=== PATIENT | female | born 1980 | race American Indian/Alaskan Native ===

== ENCOUNTER 2017-05-30 13:08 | Emergency (ER) | payer OTHER ==
[2017-05-30 13:24] VITALS: BP 112/79
[2017-05-30] MEDS ORDERED: HYDROmorphone 0.5 MG/0.5 ML Syringe IVPUSH ONE ×2 (13:33→16:03)
[2017-05-30] MEDS ORDERED: Metoclopramide 10 MG/2 ML SDV IVPUSH ONE (13:33)
--- NOTE | 2017-05-30 13:38 | EDM.PDOC ---
ED HPI GENERAL MEDICAL PROBLEM - General Chief Complaint: Abdominal Pain Stated Complaint: SIDE PAIN Time Seen by Provider: 05/30/17 13:33 Source of Information: Reports: Patient History Limitations: Reports: No Limitations - History of Present Illness INITIAL COMMENTS - FREE TEXT/NARRATIVE: 36-year-old female presents to the ED with acute onset of nausea and vomiting initially and then development of right upper quadrant abdominal pain rating through to her back. This started about 0830 hrs. this morning while she was in the workplace. Has vomited 6 times. Now just dry heaves. No blood in the emesis. She had cereal for breakfast. She to use a small amount of chicken for dinner but threw this up as well. No fever no chills. No history of renal colic. No history of biliary colic. Pain came on abruptly. Is moving slowly down the right lower quadrant towards the groin. No genitourinary complaints. No previous abdominal surgery. Onset: Today Onset Date: 05/30/17 Onset Time: 08:00 Duration: Hour(s): Location: Reports: Abdomen (Right upper quadrant underneath her costal margin and into the right flank and side rating down the right hemiabdomen towards the groin.) Quality: Reports: Sharp, Stabbing, Other (Strong colicky component to the pain.) Improves with: Reports: None Context: Reports: Other (Spontaneous onset of nausea and vomiting followed by the pain.). Denies: Activity, Exercise, Lifting, Sick Contact, Trauma Associated Symptoms: Reports: Fever/Chills (Chills but no fever.), Malaise, Nausea/Vomiting (Intractable) Treatments COMMUNICATIONS WRITER: Reports: Other (see below) Other Treatments COMMUNICATIONS WRITER: alleve Right Lower Abdomen Pain Score (Numeric/FACES): 8 - Related Data Allergies Allergy/AdvReac Type Severity Reaction Status Date / Time No Known Allergies Allergy Verified 02/16/16 16:55 Home Meds: Home Meds Control 1 tab PO DAILY 05/30/17 [History] Past Medical History - Past Health History Medical/Surgical History: Denies Medical/Surgical History Other HEENT History: wears eyeglasses/contacts. 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 Hematologic History: Reports: Anemia, Blood Transfusion(s) Social & Family History - Tobacco Use Smoking Status *Q: Never Smoker Second Hand Smoke Exposure: No - Caffeine Use Caffeine Use: Reports: Coffee - Recreational Drug Use Recreational Drug Use: No - Living Situation & Occupation Living situation: Reports: Single Occupation: Employed ED ROS GENERAL - Review of Systems Review Of Systems: See Below Constitutional: Reports: Chills, Decreased Appetite HEENT: Reports: No Symptoms Respiratory: Reports: Shortness of Breath Cardiovascular: Reports: No Symptoms (Hurts to take a deep breath on the right side.) Endocrine: Reports: No Symptoms GI/Abdominal: Reports: Abdominal Pain (See history of present illness), Nausea, Vomiting (Has vomited at least 5 times this morning.). Denies: Constipation, Diarrhea : Reports: No Symptoms ( No he met emesis.) Musculoskeletal: Reports: No Symptoms Skin: Reports: No Symptoms Neurological: Reports: No Symptoms Psychiatric: Reports: Depression Hematologic/Lymphatic: Reports: No Symptoms Immunologic: Reports: No Symptoms (Controlled with current medications) ED EXAM, GI/ABD - Physical Exam Exam: See Below Exam Limited By: No Limitations General Appearance: Alert, Moderate Distress (An obvious amount of pain.) Eyes: Bilateral: Normal Appearance (No jaundice) Throat/Mouth: Normal Inspection, Normal Oropharynx, Other Head: Atraumatic, Normocephalic (Tongue is mildly dry.) Neck: Normal Inspection, Supple, Non-Tender, Full Range of Motion. No: Lymphadenopathy (L), Lymphadenopathy (R) Respiratory/Chest: No Respiratory Distress, Lungs Clear, Normal Breath Sounds, No Accessory Muscle Use Cardiovascular: Normal Peripheral Pulses, Regular Rate, Rhythm, No Edema, No Gallop, No Murmur GI/Abdominal Exam: Normal Bowel Sounds, Soft, Guarding, Tender (Right upper quadrant and upper quadrant with positive Morgan's sign.) Back Exam: CVA Tenderness (R). No: CVA Tenderness (L) (Moderate) Extremities: Normal Inspection, Normal Range of Motion, Non-Tender, No Pedal Edema Neurological: Alert, Oriented, CN II-XII Intact, Normal Cognition, Normal Gait Psychiatric: Normal Affect, Anxious Skin Exam: Warm, Dry, Intact, No Rash Course - Vital Signs Last Recorded V/S: Last Vital Signs Temp 36.3 C 05/30/17 13:21 Pulse 63 05/30/17 13:21 Resp 20 05/30/17 13:21 BP 112/79 05/30/17 13:21 Pulse Ox 99 05/30/17 13:21 - Orders/Labs/Meds Labs: Laboratory Tests 05/30/17 05/30/17 05/30/17 Range/Units 13:40 14:01 14:01 WBC 11.53 H (3.98-10.04) K/mm3 RBC 4.14 (3.98-5.22) M/mm3 Hgb 12.6 (11.2-15.7) gm/L Hct 36.0 (34.1-44.9) % MCV 87.0 (79.4-94.8) fl MCH 30.4 (25.6-32.2) pg MCHC 35.0 (32.2-35.5) g/dl RDW Std Deviation 39.3 (36.4-46.3) fL Plt Count 298 (182-369) K/mm3 MPV 10.4 (9.4-12.3) fl Neutrophils % (Manual) 84 H (40-60) % Band Neutrophils % 0 (0-10) % Lymphocytes % (Manual) 9 L (20-40) % Atypical Lymphs % 0 % Monocytes % (Manual) 4 (2-10) % Eosinophils % (Manual) 3 (0.7-5.8) % Basophils % (Manual) 0 L (0.1-1.2) Platelet Estimate Adequate Plt Morphology Comment Normal RBC Morph Comment Normal Sodium 139 (136-145) mEq/L Potassium 4.2 (3.5-5.1) mEq/L Chloride 104 (98-107) mEq/L Carbon Dioxide 27 (21-32) mEq/L Anion Gap 12.2 (5-15) BUN 14 (7-18) mg/dL Creatinine 1.0 (0.55-1.02) mg/dL Est Cr Clr Drug Dosing TNP Estimated GFR (MDRD) > 60 (>60) mL/min BUN/Creatinine Ratio 14.0 (14-18) Glucose 111 H (74-106) mg/dL Calcium 9.3 (8.5-10.1) mg/dL Total Bilirubin 0.5 (0.2-1.0) mg/dL AST 20 (15-37) U/L ALT 33 (14-59) U/L Alkaline Phosphatase 88 (46-116) U/L C-Reactive Protein < 0.2 (<1.0) mg/dL Total Protein 7.8 (6.4-8.2) g/dl Albumin 3.9 (3.4-5.0) g/dl Globulin 3.9 gm/dL Albumin/Globulin Ratio 1.0 (1-2) Amylase 59 (25-115) U/L Urine Color Yellow (Yellow) Urine Appearance Clear (Clear) Urine pH 7.0 (5.0-8.0) Ur Specific [place] 1.025 (1.005-1.030) Urine Protein Negative (Negative) Urine Glucose (UA) Negative (Negative) Urine Ketones Negative (Negative) Urine Occult Blood Trace-intact H (Negative) Urine Nitrite Positive H (Negative) Urine Bilirubin Negative (Negative) Urine Urobilinogen 0.2 (0.2-1.0) Ur Leukocyte Esterase Negative (Negative) Urine RBC 0-5 (0-5) /hpf Urine WBC 0-5 (0-5) /hpf Ur Epithelial Cells 0-5 (0-5) /hpf Urine Bacteria Many H (FEW) /hpf Urine Mucus Not seen (FEW) /hpf Meds: Medications Discontinued Medications Generic Name Dose Route Start Last Admin Trade Name Liu PRN Reason Stop Dose Admin Dicyclomine HCl 20 mg 05/30/17 16:02 05/30/17 16:10 Bentyl PO 05/30/17 16:03 20 mg ONETIME ONE Administration Hydromorphone HCl 0.5 mg 05/30/17 13:33 05/30/17 14:38 Dilaudid IVPUSH 05/30/17 13:34 0.5 mg ONETIME ONE Administration Hydromorphone HCl 0.5 mg 05/30/17 16:03 05/30/17 16:08 Dilaudid IVPUSH 05/30/17 16:04 0.5 mg ONETIME ONE Administration Sodium Chloride 1,000 mls @ 150 mls/hr 05/30/17 13:45 05/30/17 14:21 Normal Saline IV 150 mls/hr ASDIRECTED JODY Administration Ketorolac Tromethamine 30 mg 05/30/17 13:45 05/30/17 14:12 Toradol IVPUSH 30 mg ONETIME JODY Administration Magnesium Citrate 240 ml 05/30/17 16:02 05/30/17 16:11 Citrate Of Magnesia PO 05/30/17 16:03 240 ml ONETIME ONE Administration Metoclopramide HCl 7.5 mg 05/30/17 13:33 05/30/17 14:04 Reglan IVPUSH 05/30/17 13:34 7.5 mg ONETIME ONE Administration - Radiology Interpretation Free Text/Narrative:: 36-year-old female [place] presents to the ED with acute onset of nausea and vomiting initially and then identified right upper quadrant abdominal pain that radiates down towards the right groin. She is aware of pain in her right flank area as well. Pain came on around 0830 hrs. this morning and she can't stop vomiting. She did have cereal for breakfast. About 0600 hrs. no previous similar attacks to suggest biliary colic no known history of renal colic. Pain currently is strongly colicky in nature and currently 10 out of 10. She does not have a feeling of need to defecate or void. On exam she is very tender in the right upper quadrant of the abdomen under the costal margin with a positive Morgan sign suggesting biliary colic. However the severity of her pain is suggestive of renal colic. Plan IV normal saline at 150 mils per hour. Given Toradol 30 mg IV with Reglan 7.5 mg IV and Dilaudid 0.5 mg IV for pain relief. She will have a urinalysis when available. CT of the abdomen will be performed per renal protocol. Routine labs ordered including a serum amylase and CRP. - Re-Assessments/Exams Free Text/Narrative Re-Assessment/Exam: 05/30/17 14:37 CT of the abdomen has been completed. The liver appears normal. The gallbladder is difficult to visualize but has a bit of faint shadowing suggesting gallstones within. They are not calcified. There is a very small stone in the inferior pole of the Lt kidney but no signs of obstructive uropathy. Noted increased stool throughout the right hemicolon and the hepatic flexure of the transverse colon. Pancreas also appears to be within normal limits. Therefore an ultrasound of her gallbladder will be ordered. 05/30/17 14:40 labs reveal an elevated white blood cell count of 11.53 with a left shift of 84% neutrophils and no bands hemoglobin is 12.6 hematocrit is 36.0. Platelets 298,000. Sodium is 139 potassium is 4.2. The remainder the chemistry is normal. This includes normal liver function studies and an amylase. Urinalysis is positive for nitrates and trace blood suggestive of a possible stone leukocyte esterase was negative many bacteria are appreciated. A urine culture was therefore ordered. Patient reports her pain is much improved at this time. 05/30/17 15:27 ultrasound of the gallbladder has been completed. It appears to be within normal limits without any obvious stones within it. Gallbladder wall does not appear to be thickened. Right kidney also appears to be within normal limits. Therefore not able to define at this time her extreme colicky right upper quadrant abdominal pain. There is a lot of stool in the colon but it be unusual to make her vomit 5 times due to pain severity.Will await radiiologists report. 05/30/17 16:03 radiologist agrees with my findings with no evidence of 60 gallstones or gallbladder wall thickening. The only other thing they could hurt her this badly would be colic of the large bowel which is very full of stool throughout the right hemicolon and hepatic flexure of the transverse colon. Therefore I will give her Citroma 8 ounces by mouth mixed with 6 ounces of juice of choice orally once. Her pain is started to come back and I will repeat Dilaudid 0.5 mg IV. Bentyl 20 mg tabs by mouth. She will have her brother come and pick her up. She was advised also start to work in 2-3 hours and will likely move for 5 times ending in some degree of diarrhea. She is to return to the ED if not markedly improved after bowel cleanse. Departure - Departure Time of Disposition: 16:04 Disposition: Home, Self-Care 01 Condition: Fair Clinical Impression: Constipation by delayed colonic transit Abdominal pain Qualifiers: Abdominal location: generalized Qualified Code(s): R10.84 - Generalized abdominal pain - Discharge Information Instructions: Constipation, Adult, Abdominal Pain, Adult, [id number] Referrals: Julieta Weiner MD [Primary Care Provider] - Forms: ED Department Discharge Additional Instructions: Evaluation in the emergency department today in regards to sudden onset of severe right upper quadrant and right deon-abdominal pain starting at 0800 hrs. this morning shortly after you got to work. Pain became intense enough that you vomited multiple times and fainted once. The history suggests a possible kidney stone and/or galls bladder disease as a cause of the pain. CT scan of the abdomen was performed and did not reveal any stones or obstruction of the urinary tree. Both kidneys appear to be within normal limits. There were some faint shadows in the gallbladder on CT suggesting possibility of gallstones but an ultrasound of the gallbladder shows absence of any gallstones or gallbladder wall thickening to suggest previous problems with gallbladder disorder. The CT did reveal a large amount of stool throughout the entire right hemicolon and the beginning of the transverse colon across the upper abdomen on the right side. It appears this is the most likely cause of your severe pain today. Treatment is therefore Citroma 8 ounces of mixed with 5-6 ounces of juice of choice taken by mouth once this usually starts to work in 1-3 hours and will usually make her bowels move 3-5 times often ending in some degree of diarrhea this should clear up her pain completely. If pain not markedly improved after bowel cleanse you should return to the ED or medical care. You're given pain medicine intravenously 2 while in the department for pain relief. No driving for the next 6 hours.
[2017-05-30] MEDS ORDERED: Sodium Chloride 0.9% 1,000 ML IV SCH (13:45)
[2017-05-30] MEDS ORDERED: Ketorolac 30 MG/ML SDV IVPUSH SCH (13:45)
--- NOTE | 2017-05-30 15:35 | CT ---
CT abdomen and pelvis Technique: Multiple axial sections were obtained from above the dome of the diaphragm inferiorly through the pubic symphysis. Intravenous and oral contrast not utilized. Study has been performed as a ureteral stone protocol. Comparison: No previous CT abdomen or pelvis study is available. Findings: Visualized lung bases shows nothing acute. Liver shows fatty infiltration. Spleen appears within normal limits. Adrenal glands show no nodule. Pancreas appears within normal limits. Aorta shows no aneurysmal dilatation. Gallbladder shows no calcified gallstones. No retroperitoneal adenopathy or mesenteric abnormalities are seen. Appendix is seen which appears to be normal. No pelvic mass or adenopathy is seen. Both kidneys show no hydronephrosis. Very minimal nonobstructing stone is noted inferiorly within left kidney measuring less than 5 mm. No ureteral dilatation or ureteral calculi are seen. No bladder calculi are noted. Bone window settings were reviewed which appears within normal limits for the patient's age. Impression: 1. Very small nonobstructing stone inferiorly within the left kidney. 2. No ureteral dilatation or ureteral stone is seen. 3. Fatty infiltration throughout the liver. 4. No additional abnormality is identified on noncontrast CT study of the abdomen and pelvis performed as a ureteral stone protocol. Diagnostic code #3
--- NOTE | 2017-05-30 15:55 | US ---
Limited abdominal ultrasound: Multiple real-time images of the right upper abdomen were obtained. Comparison: No prior right upper quadrant abdominal ultrasound prior CT exam performed earlier on the same day (05/30/17). Liver is mildly echogenic. No focal abnormality is seen within the liver. Gallbladder shows no gallstones. No gallbladder wall thickening or biliary duct dilatation is seen. Right kidney shows no hydronephrosis or mass. Right kidney measures 11 cm in length. Pancreas that is visualized appears within normal limits. Impression: 1. Fatty infiltration within the liver. 2. No additional abnormality is identified on right upper quadrant abdominal ultrasound exam. Diagnostic code #2
[2017-05-30] MEDS ORDERED: Dicyclomine 10 MG Cap PO ONE (16:02)
[2017-05-30] MEDS ORDERED: Magnesium Citrate Solution 296 ML Bottle PO ONE (16:02)
== END 2017-05-30 16:20 | disposition home or self-care (01) ==
LOC: JD.ED 13:08
DX: K59.01 Slow transit constipation (principal); Z86.2 Personal history of diseases of the blood and blood-forming organs and certain disorders involving the immune mechanism
CPT/HCPCS: 36415; 74176; 76705; 80053; 81001; 82150; 85025; 86140; 87086; 87088; 87186; 96361; 96374; 96375; 96376; 99284; A9270; J1170; J1885; J2765; J7040

== ENCOUNTER 2017-06-03 16:15 | Emergency (ER) | payer OTHER ==
[2017-06-03 16:30] VITALS: BP 116/76
[2017-06-03] MEDS ORDERED: Ondansetron 4 MG/2 ML SDV IVPUSH ONE ×3 (16:59→18:54)
[2017-06-03] MEDS ORDERED: cefTRIAXone 1 GM in Sodium Chloride 0.9% 100 ML IV ONE ×2 (16:59→17:15)
[2017-06-03] MEDS ORDERED: Sodium Chloride 0.9% 1,000 ML IV ONE (16:59)
--- NOTE | 2017-06-03 16:59 | EDM.PDOC ---
ED HPI GENERAL MEDICAL PROBLEM - General Chief Complaint: Abdominal Pain Stated Complaint: STOMACH PAIN Time Seen by Provider: 06/03/17 16:54 - History of Present Illness INITIAL COMMENTS - FREE TEXT/NARRATIVE: 36-year-old female presents to the emergency room with continued abdominal pain. Patient was seen here nearly 4 days ago thought to have a urinary tract infection after a very extensive evaluation including a CAT scan without contrast considering she may have a kidney stone and an abdominal ultrasound they were both unrevealing. Laboratory evaluation did suggest a UTI. Culture and sensitivities came back late last night the patient was unavailable to reach this morning but it did show that she was resistant try the Bactrim that she was started on she is also resistant to Cipro and Levaquin she shows good susceptibility to ampicillin [place] the cephalosporins gentamicin and nitrofurantoin. This point the patient is nauseated can't really keep much of anything down she is also been constipated with no meaningful bowel movement since she left here several days ago. The patient was given with sounds like magnesium citrate but vomited this up shortly after leaving here on that visit. right lower groin/pelvic area Pain Score (Numeric/FACES): 7 - Related Data Allergies Allergy/AdvReac Type Severity Reaction Status Date / Time No Known Allergies Allergy Verified 06/03/17 16:30 Home Meds: Home Meds Control 1 tab PO DAILY 05/30/17 [History] Cefuroxime [Ceftin] 500 mg PO BID #14 tablet 06/03/17 [Rx] Hydrocodone/Acetaminophen [[place] 5-325 Tablet] 1 each PO Q6H PRN #10 tablet 06/11 [Rx] Lactulose 20 gm PO Q24H #300 ml 06/03/17 [Rx] Ondansetron [Zofran ODT] 4 mg PO Q4H PRN #8 tab.dis 06/03/17 [Rx] Past Medical History - Past Health History Medical/Surgical History: Denies Medical/Surgical History Other HEENT History: wears eyeglasses/contacts. Gastrointestinal History: Reports: PUD Other Gastrointestinal History: H-pylori [employer] History: Reports: Other OB/BYN History: has had 4 vaginal deliveries over the years Other Psychiatric History: is currently on anti-depressant. Hematologic History: Reports: Anemia, Blood Transfusion(s) Social & Family History - Family History Family Medical History: Noncontributory - Tobacco Use Smoking Status *Q: Never Smoker Second Hand Smoke Exposure: No - Caffeine Use Caffeine Use: Reports: None - Recreational Drug Use Recreational Drug Use: No - Living Situation & Occupation Living situation: Reports: Single Occupation: Employed ED ROS GENERAL - Review of Systems Review Of Systems: See Below Constitutional: Reports: No Symptoms Respiratory: Reports: No Symptoms Cardiovascular: Reports: No Symptoms GI/Abdominal: Reports: Abdominal Pain, Constipation. Denies: Diarrhea : Reports: Dysuria, Flank Pain. Denies: Frequency, Incontinence Skin: Reports: No Symptoms Neurological: Reports: No Symptoms Psychiatric: Reports: No Symptoms ED EXAM, GI/ABD - Physical Exam Exam: See Below Exam Limited By: No Limitations General Appearance: Alert, No Apparent Distress Head: Atraumatic, Normocephalic Neck: Normal Inspection, Supple, Non-Tender, Full Range of Motion Respiratory/Chest: No Respiratory Distress, Lungs Clear, Normal Breath Sounds Cardiovascular: Regular Rate, Rhythm, No Edema, No Murmur GI/Abdominal Exam: Normal Bowel Sounds, Soft, Other (His tenderness in the suprapubic area and along the left side of the abdomen mostly in the sigmoid region no rigidity rebound or guarding noted) Back Exam: Normal Inspection. No: CVA Tenderness (L), CVA Tenderness (R) Extremities: Normal Inspection, No Pedal Edema Course - Vital Signs Last Recorded V/S: Last Vital Signs Temp 36.3 C 06/03/17 16:26 Pulse 51 L 06/03/17 16:26 Resp 18 06/03/17 16:26 BP 116/76 06/03/17 16:26 Pulse Ox 97 06/03/17 16:26 - Orders/Labs/Meds Orders: Active Orders 24 hr Category Date Time Status Abdomen 2V AP Flat Upright [CR] Stat Exams 06/03/17 18:20 Taken Labs: Laboratory Tests 06/03/17 06/03/17 06/03/17 Range/Units 14:10 17:05 17:25 WBC 7.81 (3.98-10.04) K/mm3 RBC 4.00 (3.98-5.22) M/mm3 Hgb 12.2 (11.2-15.7) gm/L Hct 34.7 (34.1-44.9) % MCV 86.8 (79.4-94.8) fl MCH 30.5 (25.6-32.2) pg MCHC 35.2 (32.2-35.5) g/dl RDW Std Deviation 39.4 (36.4-46.3) fL Plt Count 268 (182-369) K/mm3 MPV 10.6 (9.4-12.3) fl Neutrophils % (Manual) 75 H (40-60) % Band Neutrophils % 0 (0-10) % Lymphocytes % (Manual) 20 (20-40) % Atypical Lymphs % 0 % Monocytes % (Manual) 3 (2-10) % Eosinophils % (Manual) 2 (0.7-5.8) % Basophils % (Manual) 0 L (0.1-1.2) Platelet Estimate Adequate RBC Morph Comment Normal Sodium (136-145) mEq/L Potassium (3.5-5.1) mEq/L Chloride (98-107) mEq/L Carbon Dioxide (21-32) mEq/L Anion Gap (5-15) BUN (7-18) mg/dL Creatinine (0.55-1.02) mg/dL Est Cr Clr Drug Dosing Estimated GFR (MDRD) (>60) mL/min BUN/Creatinine Ratio (14-18) Glucose (74-106) mg/dL Calcium (8.5-10.1) mg/dL Total Bilirubin (0.2-1.0) mg/dL AST (15-37) U/L ALT (14-59) U/L Alkaline Phosphatase (46-116) U/L Total Protein (6.4-8.2) g/dl Albumin (3.4-5.0) g/dl Globulin gm/dL Albumin/Globulin Ratio (1-2) Lipase (73-393) U/L Urine Color Yellow (Yellow) Urine Appearance Cloudy H (Clear) Urine pH 7.5 (5.0-8.0) Ur Specific [place] 1.020 (1.005-1.030) Urine Protein Negative (Negative) Urine Glucose (UA) Negative (Negative) Urine Ketones Negative (Negative) Urine Occult Blood Trace-intact H (Negative) Urine Nitrite Negative (Negative) Urine Bilirubin Negative (Negative) Urine Urobilinogen 2.0 H (0.2-1.0) Ur Leukocyte Esterase Negative (Negative) Urine RBC 0-5 (0-5) /hpf Urine WBC 0-5 (0-5) /hpf Ur Epithelial Cells 5-10 H (0-5) /hpf Amorphous Sediment Moderate H (NOT SEEN) /hpf Urine Bacteria Few (FEW) /hpf Urine Mucus Not seen (FEW) /hpf Urine HCG, Qual Negative (NEGATIVE) 06/03/17 06/03/17 Range/Units 17:25 17:25 WBC (3.98-10.04) K/mm3 RBC (3.98-5.22) M/mm3 Hgb (11.2-15.7) gm/L Hct (34.1-44.9) % MCV (79.4-94.8) fl MCH (25.6-32.2) pg MCHC (32.2-35.5) g/dl RDW Std Deviation (36.4-46.3) fL Plt Count (182-369) K/mm3 MPV (9.4-12.3) fl Neutrophils % (Manual) (40-60) % Band Neutrophils % (0-10) % Lymphocytes % (Manual) (20-40) % Atypical Lymphs % % Monocytes % (Manual) (2-10) % Eosinophils % (Manual) (0.7-5.8) % Basophils % (Manual) (0.1-1.2) Platelet Estimate RBC Morph Comment Sodium 142 (136-145) mEq/L Potassium 3.7 (3.5-5.1) mEq/L Chloride 109 H (98-107) mEq/L Carbon Dioxide 25 (21-32) mEq/L Anion Gap 11.7 (5-15) BUN 10 (7-18) mg/dL Creatinine 0.9 (0.55-1.02) mg/dL Est Cr Clr Drug Dosing TNP Estimated GFR (MDRD) > 60 (>60) mL/min BUN/Creatinine Ratio 11.1 L (14-18) Glucose 98 (74-106) mg/dL Calcium 8.9 (8.5-10.1) mg/dL Total Bilirubin 0.5 (0.2-1.0) mg/dL AST 49 H (15-37) U/L ALT 73 H (14-59) U/L Alkaline Phosphatase 106 (46-116) U/L Total Protein 7.2 (6.4-8.2) g/dl Albumin 3.4 (3.4-5.0) g/dl Globulin 3.8 gm/dL Albumin/Globulin Ratio 0.9 L (1-2) Lipase 154 (73-393) U/L Urine Color (Yellow) Urine Appearance (Clear) Urine pH (5.0-8.0) Ur Specific [place] (1.005-1.030) Urine Protein (Negative) Urine Glucose (UA) (Negative) Urine Ketones (Negative) Urine Occult Blood (Negative) Urine Nitrite (Negative) Urine Bilirubin (Negative) Urine Urobilinogen (0.2-1.0) Ur Leukocyte Esterase (Negative) Urine RBC (0-5) /hpf Urine WBC (0-5) /hpf Ur Epithelial Cells (0-5) /hpf Amorphous Sediment (NOT SEEN) /hpf Urine Bacteria (FEW) /hpf Urine Mucus (FEW) /hpf Urine HCG, Qual (NEGATIVE) Meds: Medications Discontinued Medications Generic Name Dose Route Start Last Admin Trade Name Freq PRN Reason Stop Dose Admin Hydromorphone HCl 0.5 mg 06/03/17 18:14 06/03/17 18:18 Dilaudid IVPUSH 06/03/17 18:15 0.5 mg ONETIME ONE Administration Ceftriaxone Sodium 1 gm/ 100 mls @ 200 mls/hr 06/03/17 16:59 06/03/17 19:25 Sodium Chloride IV 06/03/17 17:28 Not Given ONETIME ONE Sodium Chloride 1,000 mls @ 999 mls/hr 06/03/17 16:59 06/03/17 17:12 Normal Saline IV 06/03/17 17:59 999 mls/hr ONETIME ONE Administration Ceftriaxone Sodium 1 gm/ 100 mls @ 200 mls/hr 06/03/17 17:15 06/03/17 17:26 Sodium Chloride IV 06/03/17 17:44 200 mls/hr ONETIME ONE Administration Lactated Ringer's 1,000 mls @ 999 mls/hr 06/03/17 17:29 06/03/17 18:30 Ringers, Lactated IV 06/03/17 18:29 999 mls/hr .BOLUS ONE Administration Ondansetron HCl 4 mg 06/03/17 16:59 06/03/17 17:13 Zofran IVPUSH 06/03/17 17:00 4 mg ONETIME ONE Administration Ondansetron HCl 4 mg 06/03/17 18:54 06/03/17 19:06 Zofran IVPUSH 06/03/17 18:55 4 mg ONETIME ONE Administration Ondansetron HCl 4 mg 06/03/17 18:54 06/03/17 19:07 Zofran IVPUSH 06/03/17 18:55 Not Given ONETIME ONE Phenazopyridine HCl 95 mg 06/03/17 17:28 06/03/17 18:02 Urinary Pain Relief PO 06/03/17 17:29 95 mg ONETIME ONE Administration - Re-Assessments/Exams Free Text/Narrative Re-Assessment/Exam: 06/03/17 18:49 The patient was initially started on some normal saline and given some Zofran and was given a gram of Rocephin with her history of UTI resistant to the Bactrim she was started on however with further questioning the patient been having some problems with constipation she had a normal unenhanced CT on her last visit that did not show an obstructing kidney stone or any other acute changes did notice that she had a fatty liver. This can correlate with the patient's minimally elevated transaminases at this time she does not seem to have a lot of right upper quadrant discomfort now. At this point we are waiting a KUB and an upright. Anticipate changing her antibiotics in possibly treating for constipation. 06/03/17 19:33 KUB and upright did not show any evidence of obstruction she does have a fair amount of right-sided stool not a lot in the left colon or rectum. Discussed the findings and options at this point we can repeat the CAT scan with contrast at this point however her labs are not that concerning. The patient would like to hold off on this option at this point she would like to go home it is willing to try treatment for constipation she would like some Zofran a few pain pills and we will change her antibiotics from the Bactrim to Ceftin 500 mg twice a day. Her abdominal pain could very well be due to a underlying pyelonephritis at this point however her urine looks much better than it did a few days ago the history she gives for constipation could be contributing to this however her x- rays today are not that supportive of this. Departure - Departure Time of Disposition: 19:35 Disposition: Home, Self-Care 01 Clinical Impression: Urinary tract infection, Constipation Abdominal pain Qualifiers: Abdominal location: generalized Qualified Code(s): R10.84 - Generalized abdominal pain Clinical Impression: (Ruled Out): Abdominal pain of unknown cause - Discharge Information Prescriptions: Cefuroxime [Ceftin] 500 mg PO BID #14 tablet Hydrocodone/Acetaminophen [[place] 5-325 Tablet] 1 each PO Q6H PRN #10 tablet PRN Reason: Abdominal Pain Lactulose 20 gm PO Q24H #300 ml Ondansetron [Zofran ODT] 4 mg PO Q4H PRN #8 tab.dis PRN Reason: Nausea/Vomiting Referrals: PCP,None [Primary Care Provider] - Forms: ED Department Discharge Additional Instructions: Return to emergency room with any questions problems or worsening symptoms. Return to the emergency room in 12 hours if not better sooner if getting worse. Clear liquid diet for the next 24 hours then slowly advance as tolerated. While at the pharmacy this evening picked up some magnesium citrate drink 1 bottle when you get home, it goes down easier chilled or over ice. This is for constipation. You received a strong antibiotic here in the emergency room you been given a antibiotic to take it home start this tomorrow it is Ceftin, or cefuroxime take one twice daily for a week until all gone. Use the [place], or the hydrocodone, for pain. Allow 12 hours after taking this before driving or returning to work. You can try Tylenol 325 mg 1 or 2 every 4-6 hours as needed for pain. Limit this to no more than 10 pills daily your hydrocodone should count as one of these pills as it contains Tylenol. You been started on lactulose take 2 tablespoons daily to prevent constipation. - My Orders Last 24 Hours: My Active Orders 06/03/17 18:20 Abdomen 2V AP Flat Upright [CR] Stat - Assessment/Plan Last 24 Hours: My Active Orders 06/03/17 18:20 Abdomen 2V AP Flat Upright [CR] Stat
[2017-06-03] MEDS ORDERED: Phenazopyridine 95 MG Tab PO ONE (17:28)
[2017-06-03] MEDS ORDERED: Lactated Ringers 1,000 ML IV ONE (17:29)
[2017-06-03] MEDS ORDERED: HYDROmorphone 0.5 MG/0.5 ML Syringe IVPUSH ONE (18:14)
--- NOTE | 2017-06-05 08:58 | CR ---
Abdomen: Supine and upright views of the abdomen were obtained. Comparison: No prior abdominal x-ray, previous CT abdomen and pelvis exam of 05/30/15. Bowel gas pattern appears within normal limits. No abnormal calcifications or soft tissue abnormality is seen. Bony structures are unremarkable. Impression: 1. No abnormality is identified on two-view abdominal x-ray. Diagnostic code #1
== END 2017-06-03 20:01 | disposition home or self-care (01) ==
LOC: JD.ED 16:15
DX: N39.0 Urinary tract infection, site not specified (principal); K59.00 Constipation, unspecified; Z86.2 Personal history of diseases of the blood and blood-forming organs and certain disorders involving the immune mechanism
CPT/HCPCS: 36415; 74020; 80053; 81001; 81025; 83690; 85025; 96361; 96365; 96375; 96376; 99284; A9270; J0696; J1170; J2405; J7030; J7040; J7120

== ENCOUNTER 2017-08-24 17:25 | Emergency (ER) | payer OTHER ==
[2017-08-24 17:42] VITALS: BP 138/93
[2017-08-24] MEDS ORDERED: Sodium Chloride 0.9% 10 ML Syringe FLUSH PRN (18:02)
[2017-08-24] MEDS ORDERED: Sodium Chloride 0.9% 1,000 ML IV ONE (18:02)
[2017-08-24] MEDS ORDERED: Ketorolac 30 MG/ML SDV IVPUSH ONE (18:02)
[2017-08-24] MEDS ORDERED: HYDROmorphone 0.5 MG/0.5 ML Syringe IVPUSH ONE (19:59)
--- NOTE | 2017-08-24 20:10 | CT ---
CT abdomen and pelvis Technique: Multiple axial sections were obtained from above the dome of the diaphragm inferiorly through the pubic symphysis. Intravenous and oral contrast was not utilized. Study has been performed as a ureteral stone protocol. Comparison: Prior noncontrast CT study also performed as a renal stone protocol dated 05/30/17. Findings: Small portion of the visualized lung bases shows nothing acute. Liver shows fatty infiltration with slight focal fatty sparing around the gallbladder being seen. Spleen appears within normal limits. Adrenal glands show no nodule. Pancreas is within normal limits. Gallbladder contains no calcified gallstones. Aorta shows mild atherosclerotic change without aneurysmal dilatation. No retroperitoneal adenopathy is seen. Appendix is seen which appears normal. No pelvic mass or adenopathy is seen. Several small nonobstructing calculi are seen within both kidneys. No ureteral dilatation or ureteral stone is seen. No inflammatory change or free fluid is seen. No bowel dilatation is identified. Bone window settings were reviewed which appear within normal limits for the patient's age. Impression: 1. Several small nonobstructing calculi within both kidneys. No ureteral dilatation or ureteral stone is seen. 2. Fatty infiltration within the liver as described above. 3. Nothing acute is appreciated on noncontrast CT study of the abdomen and pelvis. Diagnostic code #2
--- NOTE | 2017-08-24 20:34 | EDM.PDOC ---
ED HPI GENERAL MEDICAL PROBLEM - General Chief Complaint: Abdominal Pain Stated Complaint: Left abdominal pain Time Seen by Provider: 08/24/17 17:45 Source of Information: Reports: Patient, Old Records, RN Notes Reviewed History Limitations: Reports: No Limitations - History of Present Illness INITIAL COMMENTS - FREE TEXT/NARRATIVE: 37 year old female presents to the ED with complaints of LUQ, LLQ, and left flank pain for the past two days. The pain is described as constant and worsening over time. The pain is worse with movement. She is nauseated but is not vomiting. She has a history of constipation but says she had a BM yesterday and doesn't feel constipated. She has no fever, chills, or sweats. No history of kidney stones. She denies urinary frequency, urgency, pain, or hematuria. She denies possibility of however she is not on any form of contraception. No previous abdominal surgeries. No history of diverticulitis. No additional complaints. Left Lower Abdomen Pain Score (Numeric/FACES): 8 - Related Data Allergies Allergy/AdvReac Type Severity Reaction Status Date / Time No Known Allergies Allergy Verified 08/24/17 17:42 Home Meds: Home Meds Iron,Carbonyl/Vit C/Vit B12/Fa [Iron 100 Plus Tablet] 1 tab PO DAILY 08/24/17 [ History] Sucralfate [Carafate] 1 gm PO QIDACANDBED #20 tablet 08/24/17 [Rx] traMADol [Ultram] 50 mg PO Q6H PRN #10 tablet 08/24/17 [Rx] Past Medical History - Past Health History Medical/Surgical History: Denies Medical/Surgical History Other HEENT History: wears eyeglasses/contacts. 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 Hematologic History: Reports: Anemia, Blood Transfusion(s) - Past Surgical History GI Surgical History: Reports: EGD Social & Family History - Family History Family Medical History: Noncontributory - Tobacco Use Smoking Status *Q: Never Smoker Second Hand Smoke Exposure: No - Caffeine Use Caffeine Use: Reports: Coffee, Soda - Recreational Drug Use Recreational Drug Use: No - Living Situation & Occupation Living situation: Reports: Single Occupation: Employed ED ROS GENERAL - Review of Systems Review Of Systems: See Below Constitutional: Reports: No Symptoms. Denies: Fever, Chills, Night Sweats Respiratory: Reports: No Symptoms. Denies: Shortness of Breath, Cough Cardiovascular: Reports: No Symptoms. Denies: Chest Pain GI/Abdominal: Reports: Abdominal Pain, Constipation, Decreased Appetite, Nausea. Denies: Diarrhea, Vomiting : Reports: Flank Pain. Denies: Dysuria, Frequency, Hematuria, Urgency ED EXAM, GI/ABD - Physical Exam Exam: See Below Exam Limited By: No Limitations General Appearance: Alert, WD/WN, Anxious, Severe Distress Respiratory/Chest: No Respiratory Distress, Lungs Clear, Normal Breath Sounds Cardiovascular: Normal Peripheral Pulses, Regular Rate, Rhythm, No Murmur GI/Abdominal Exam: Normal Bowel Sounds, Soft, No Organomegaly, No Distention, Guarding, Tender (LUQ and LLQ ). No: Rigid, Rebound Back Exam: Normal Inspection, Full Range of Motion, CVA Tenderness (L). No: CVA Tenderness (R) Neurological: Alert, Oriented, Normal Cognition Course - Vital Signs Last Recorded V/S: Last Vital Signs Temp 97 F 08/24/17 17:40 Pulse 65 08/24/17 17:40 Resp 16 08/24/17 17:40 BP 138/93 H 08/24/17 17:40 Pulse Ox 99 08/24/17 17:40 - Orders/Labs/Meds Orders: Active Orders 24 hr Category Date Time Status Peripheral IV Care [RC] . DIRECTED Care 08/24/17 18:02 Active Peripheral IV Insertion Adult [OM.PC] Stat Oth 08/24/17 18:02 Ordered Labs: Laboratory Tests 08/24/17 08/24/17 08/24/17 Range/Units 18:00 18:00 18:00 WBC 9.29 (3.98-10.04) K/mm3 RBC 4.30 (3.98-5.22) M/mm3 Hgb 12.9 (11.2-15.7) gm/L Hct 37.1 (34.1-44.9) % MCV 86.3 (79.4-94.8) fl MCH 30.0 (25.6-32.2) pg MCHC 34.8 (32.2-35.5) g/dl RDW Std Deviation 39.2 (36.4-46.3) fL Plt Count 331 (182-369) K/mm3 MPV 10.4 (9.4-12.3) fl Neutrophils % (Manual) 65 H (40-60) % Band Neutrophils % 0 (0-10) % Lymphocytes % (Manual) 16 L (20-40) % Atypical Lymphs % 6 % Monocytes % (Manual) 4 (2-10) % Eosinophils % (Manual) 9 H (0.7-5.8) % Basophils % (Manual) 0 L (0.1-1.2) Platelet Estimate Adequate Plt Morphology Comment Normal RBC Morph Comment Normal Sodium 139 (136-145) mEq/L Potassium 3.6 (3.5-5.1) mEq/L Chloride 103 (98-107) mEq/L Carbon Dioxide 25 (21-32) mEq/L Anion Gap 14.6 (5-15) BUN 7 (7-18) mg/dL Creatinine 0.8 (0.55-1.02) mg/dL Est Cr Clr Drug Dosing 91.01 mL/min Estimated GFR (MDRD) > 60 (>60) mL/min BUN/Creatinine Ratio 8.8 L (14-18) Glucose 90 (74-106) mg/dL Calcium 9.1 (8.5-10.1) mg/dL Total Bilirubin 0.5 (0.2-1.0) mg/dL AST 21 (15-37) U/L ALT 37 (14-59) U/L Alkaline Phosphatase 107 (46-116) U/L C-Reactive Protein 0.2 (<1.0) mg/dL Total Protein 8.0 (6.4-8.2) g/dl Albumin 3.8 (3.4-5.0) g/dl Globulin 4.2 gm/dL Albumin/Globulin Ratio 0.9 L (1-2) Urine Color (Yellow) Urine Appearance (Clear) Urine pH (5.0-8.0) Ur Specific [place] (1.005-1.030) Urine Protein (Negative) Urine Glucose (UA) (Negative) Urine Ketones (Negative) Urine Occult Blood (Negative) Urine Nitrite (Negative) Urine Bilirubin (Negative) Urine Urobilinogen (0.2-1.0) Ur Leukocyte Esterase (Negative) Urine RBC (0-5) /hpf Urine WBC (0-5) /hpf Ur Epithelial Cells (0-5) /hpf Urine Bacteria (FEW) /hpf Urine Mucus (FEW) /hpf Urine HCG, Qual (NEGATIVE) H. pylori IgG Antibody Positive H (NEGATIVE) 08/24/17 08/24/17 Range/Units 18:50 18:50 WBC (3.98-10.04) K/mm3 RBC (3.98-5.22) M/mm3 Hgb (11.2-15.7) gm/L Hct (34.1-44.9) % MCV (79.4-94.8) fl MCH (25.6-32.2) pg MCHC (32.2-35.5) g/dl RDW Std Deviation (36.4-46.3) fL Plt Count (182-369) K/mm3 MPV (9.4-12.3) fl Neutrophils % (Manual) (40-60) % Band Neutrophils % (0-10) % Lymphocytes % (Manual) (20-40) % Atypical Lymphs % % Monocytes % (Manual) (2-10) % Eosinophils % (Manual) (0.7-5.8) % Basophils % (Manual) (0.1-1.2) Platelet Estimate Plt Morphology Comment RBC Morph Comment Sodium (136-145) mEq/L Potassium (3.5-5.1) mEq/L Chloride (98-107) mEq/L Carbon Dioxide (21-32) mEq/L Anion Gap (5-15) BUN (7-18) mg/dL Creatinine (0.55-1.02) mg/dL Est Cr Clr Drug Dosing mL/min Estimated GFR (MDRD) (>60) mL/min BUN/Creatinine Ratio (14-18) Glucose (74-106) mg/dL Calcium (8.5-10.1) mg/dL Total Bilirubin (0.2-1.0) mg/dL AST (15-37) U/L ALT (14-59) U/L Alkaline Phosphatase (46-116) U/L C-Reactive Protein (<1.0) mg/dL Total Protein (6.4-8.2) g/dl Albumin (3.4-5.0) g/dl Globulin gm/dL Albumin/Globulin Ratio (1-2) Urine Color Yellow (Yellow) Urine Appearance Clear (Clear) Urine pH 6.0 (5.0-8.0) Ur Specific [place] 1.010 (1.005-1.030) Urine Protein Negative (Negative) Urine Glucose (UA) Negative (Negative) Urine Ketones Negative (Negative) Urine Occult Blood Trace-lysed H (Negative) Urine Nitrite Negative (Negative) Urine Bilirubin Negative (Negative) Urine Urobilinogen 0.2 (0.2-1.0) Ur Leukocyte Esterase Negative (Negative) Urine RBC 0-5 (0-5) /hpf Urine WBC 0-5 (0-5) /hpf Ur Epithelial Cells 0-5 (0-5) /hpf Urine Bacteria Few (FEW) /hpf Urine Mucus Not seen (FEW) /hpf Urine HCG, Qual Negative (NEGATIVE) H. pylori IgG Antibody (NEGATIVE) Meds: Medications Discontinued Medications Generic Name Dose Route Start Last Admin Trade Name Freq PRN Reason Stop Dose Admin Hydromorphone HCl 0.5 mg 08/24/17 19:59 08/24/17 20:19 Dilaudid IVPUSH 08/24/17 20:00 0.5 mg ONETIME ONE Administration Sodium Chloride 1,000 mls @ 999 mls/hr 08/24/17 18:02 08/24/17 18:10 Normal Saline IV 08/24/17 19:02 999 mls/hr ONETIME ONE Administration Ketorolac Tromethamine 30 mg 08/24/17 18:02 08/24/17 18:11 Toradol IVPUSH 08/24/17 18:03 30 mg ONETIME ONE Administration Sodium Chloride 10 ml 08/24/17 18:02 08/24/17 18:12 Saline Flush FLUSH 10 ml ASDIRECTED PRN Administration Keep Vein Open - Re-Assessments/Exams Free Text/Narrative Re-Assessment/Exam: CBC, CRP and CMP are normal. UA reveals trace blood. CT of abdomen/pelvis without contrast ordered to evaluate for kidney stone. Read by Dr. Baxter, impression: 1. several small nonobstructing calcli within both kidneys. no ureteral dilatation or ureteral stone is seen 2. fatty infiltration of the liver 3. nothing acute identified H Pylori test came back positive. When I asked patient about this, she reports a history of H Pylori. Confirmatory stool testing is needed to determine if patient has an acute H Pylori infection. Will refer her back to her PCP for confirmatory testing. In the mean time, will treat her for constipation and gastritis. Discharge instructions as documented. Departure - Departure Time of Disposition: 20:30 Disposition: Home, Self-Care 01 Condition: Good Clinical Impression: Abdominal pain of unknown etiology Constipation Qualifiers: Constipation type: unspecified constipation type Qualified Code(s): K59.00 - Constipation, unspecified - Discharge Information Prescriptions: Sucralfate [Carafate] 1 gm PO QIDACANDBED #20 tablet traMADol [Ultram] 50 mg PO Q6H PRN #10 tablet PRN Reason: Pain (Moderate 4-6) Instructions: Abdominal Pain, Adult Referrals: Julissa Peraza PA-C [Primary Care Provider] - Forms: ED Department Discharge Additional Instructions: Constipation: 1. increase fiber in your diet 2. drink at least 80 oz of water 3. stool softeners or laxatives of your choice Gastritis 1. follow-up with your primary care provider to have confirmatory testing done for possible h pylori infection 2. carafate 1 tab before meals and at bedtime 3. omeprazole 20mg twice a day for two weeks 4. pepto-bismol as directed for abdominal pain 5. tramdol 50mg every 6 hours as needed for pain not relieved by above medications 6. avoid caffeine, coffee, alcohol, spicy, and acidic foods Return to ER with new or worsening symptoms - My Orders Last 24 Hours: My Active Orders 08/24/17 18:02 Peripheral IV Care [RC] . DIRECTED Peripheral IV Insertion Adult [OM.PC] Stat - Assessment/Plan Last 24 Hours: My Active Orders 08/24/17 18:02 Peripheral IV Care [RC] . DIRECTED Peripheral IV Insertion Adult [OM.PC] Stat
== END 2017-08-24 20:46 | disposition home or self-care (01) ==
LOC: JD.ED 17:25
DX: K59.00 Constipation, unspecified (principal)
CPT/HCPCS: 36415; 74176; 80053; 81001; 81025; 85025; 86140; 86677; 96361; 96374; 96375; 99284; J1170; J1885; J7040; J7050

== ENCOUNTER 2018-02-07 08:37 | Emergency (ER) | payer OTHER ==
[2018-02-07 09:03] VITALS: BP 122/83
[2018-02-07] MEDS ORDERED: Ondansetron 4 MG/2 ML SDV IVPUSH ONE ×2 (09:51→11:57)
[2018-02-07] MEDS ORDERED: HYDROmorphone 0.5 MG/0.5 ML SYRINGE IVPUSH STA (09:53)
--- NOTE | 2018-02-07 09:55 | EDM.PDOC ---
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 She states that she has had right pelvic cramping pain for the past 4 days, progressively getting worse, then developed nausea and emesis yesterday. No recent fever, urinary symptoms, or diarrhea. She states that she was seen at the walk-in clinic yesterday, 02/06/2018, where a CBC and CMP were within normal limits. She states that she was told that a blood test was "indeterminate", but review of her outpatient labs does not indicate a quantitative hCG was performed. We suspect that it was a urine test that was indeterminate. Apparently there were yeast seen on her microscopic urinalysis, and the patient was told that she has a vaginal yeast infection, and was instructed to start Monistat, which she has done. To be clear, however, the patient has not had any vaginal itchiness or discharge. The patient was told that her test should be repeated in a couple of days, and if positive, she might have an ectopic . The patient states that she developed vaginal bleeding around 04:00 this morning , a normal quantity for menses. The patient's last food intake was around 07:30 this morning. The patient's PCP is Julissa Peraza. Her Diamond Blender is Dr. Weiner. Abdomen Pain Score (Numeric/FACES): 8 - Related Data Allergies Allergy/AdvReac Type Severity Reaction Status Date / Time No Known Allergies Allergy Verified 02/07/18 09:03 Home Meds: Home Meds Iron,Carbonyl/Vit C/Vit B12/Fa [Iron 100 Plus Tablet] 1 tab PO DAILY 08/24/17 [ History] Cholecalciferol (Vitamin D3) [Vitamin D] 5,000 unit PO ASDIRECTED 02/07/18 [ History] Past Medical History Other HEENT History: wears eyeglasses/contacts. SPIRITUAL CARE COORDINATOR History: Reports: , Therapeutic (x 1) : 5 Para: 4 Endocrine/Metabolic History: Reports: Vitamin D Deficiency Hematologic History: Reports: Anemia, Blood Transfusion(s), Iron Deficiency - Past Surgical History GI Surgical History: Reports: EGD Female Surgical History: Reports: D&C (x 1) Social & Family History - Family History Family Medical History: Noncontributory - Tobacco Use Smoking Status *Q: Never Smoker - Caffeine Use Caffeine Use: Reports: Coffee, Soda - Alcohol Use Alcohol Use History: Yes Alcohol Use Frequency: Socially - Recreational Drug Use Recreational Drug Use: No - Living Situation & Occupation Living situation: Reports: , with Spouse, with Family (4 kids) 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 ED EXAM, GENERAL - Physical Exam Exam: See Below Exam Limited By: No Limitations General Appearance: Alert, WD/WN, No Apparent Distress Eye Exam: Bilateral Eye: Normal Inspection Ears: Normal External Exam, Hearing Grossly Normal Nose: Normal Inspection, No Blood Throat/Mouth: Normal Inspection, Normal Lips, Normal Voice, No Airway Compromise Head: Atraumatic, Normocephalic Neck: Normal Inspection, Full Range of Motion Respiratory/Chest: No Respiratory Distress, Lungs Clear, Normal Breath Sounds, No Accessory Muscle Use Cardiovascular: Normal Peripheral Pulses, Regular Rate, Rhythm, No Gallop, No JVD, No Murmur, No Rub Peripheral Pulses: 4+: Radial (L), Radial (R) GI/Abdominal: Normal Bowel Sounds, Soft, No Organomegaly, No Distention, No Abnormal Bruit, No Mass, Rebound (Right lower quadrant only), Tender (Right lower quadrant only. Essentially nontender elsewhere, however, patient does have a Rovsing sign), Other (Obturator sign present. Psoas sign present. Heel drop sign positive.) (Female) Exam: Deferred Rectal (Female) Exam: Deferred Back Exam: Normal Inspection, Full Range of Motion. No: CVA Tenderness (L), CVA Tenderness (R) Extremities: Normal Inspection, Normal Range of Motion, No Pedal Edema, Normal Capillary Refill Neurological: Alert, Oriented, Normal Cognition, No Motor/Sensory Deficits Psychiatric: Normal Affect Skin Exam: Warm, Dry, Intact, Normal Color, No Rash Course - Vital Signs Last Recorded V/S: Last Vital Signs Temp 36.7 C 02/07/18 08:55 Pulse 75 02/07/18 08:55 Resp 16 05/16/18 08:55 BP 122/83 02/07/18 08:55 Pulse Ox 100 02/07/18 08:55 - Orders/Labs/Meds Orders: Active Orders 24 hr Category Date Time Status UA W/MICROSCOPIC [URIN] Stat Lab 02/07/18 12:20 Ordered Labs: Laboratory Tests 02/07/18 02/07/18 02/07/18 Range/Units 10:15 10:15 10:15 WBC 7.46 (3.98-10.04) K/mm3 RBC 4.29 (3.98-5.22) M/mm3 Hgb 12.9 (11.2-15.7) gm/L Hct 37.4 (34.1-44.9) % MCV 87.2 (79.4-94.8) fl MCH 30.1 (25.6-32.2) pg MCHC 34.5 (32.2-35.5) g/dl RDW Std Deviation 39.6 (36.4-46.3) fL Plt Count 310 (182-369) K/mm3 MPV 10.1 (9.4-12.3) fl Neutrophils % (Manual) 61 H (40-60) % Band Neutrophils % 0 (0-10) % Lymphocytes % (Manual) 34 (20-40) % Atypical Lymphs % 0 % Monocytes % (Manual) 3 (2-10) % Eosinophils % (Manual) 2 (0.7-5.8) % Basophils % (Manual) 0 L (0.1-1.2) Platelet Estimate Adequate RBC Morph Comment Normal Sodium 139 (136-145) mEq/L Potassium 3.9 (3.5-5.1) mEq/L Chloride 106 (98-107) mEq/L Carbon Dioxide 24 (21-32) mEq/L Anion Gap 12.9 (5-15) BUN 12 (7-18) mg/dL Creatinine 0.9 (0.55-1.02) mg/dL Est Cr Clr Drug Dosing 80.90 mL/min Estimated GFR (MDRD) > 60 (>60) mL/min BUN/Creatinine Ratio 13.3 L (14-18) Glucose 91 (74-106) mg/dL Calcium 8.8 (8.5-10.1) mg/dL Total Bilirubin 0.4 (0.2-1.0) mg/dL AST 33 (15-37) U/L ALT 50 (14-59) U/L Alkaline Phosphatase 106 (46-116) U/L Total Protein 7.7 (6.4-8.2) g/dl Albumin 3.7 (3.4-5.0) g/dl Globulin 4.0 gm/dL Albumin/Globulin Ratio 0.9 L (1-2) HCG, Quant 5.0 mIU/mL Urine Color (Yellow) Urine Appearance (Clear) Urine pH (5.0-8.0) Ur Specific [place] (1.005-1.030) Urine Protein (Negative) Urine Glucose (UA) (Negative) Urine Ketones (Negative) Urine Occult Blood (Negative) Urine Nitrite (Negative) Urine Bilirubin (Negative) Urine Urobilinogen (0.2-1.0) Ur Leukocyte Esterase (Negative) Urine RBC (0-5) /hpf Urine WBC (0-5) /hpf Ur Epithelial Cells (0-5) /hpf Urine Bacteria (FEW) /hpf Urine Mucus (FEW) /hpf Blood Type Gel Antibody Screen Rhogam Indicated 02/07/18 02/07/18 Range/Units 10:15 12:20 WBC (3.98-10.04) K/mm3 RBC (3.98-5.22) M/mm3 Hgb (11.2-15.7) gm/L Hct (34.1-44.9) % MCV (79.4-94.8) fl MCH (25.6-32.2) pg MCHC (32.2-35.5) g/dl RDW Std Deviation (36.4-46.3) fL Plt Count (182-369) K/mm3 MPV (9.4-12.3) fl Neutrophils % (Manual) (40-60) % Band Neutrophils % (0-10) % Lymphocytes % (Manual) (20-40) % Atypical Lymphs % % Monocytes % (Manual) (2-10) % Eosinophils % (Manual) (0.7-5.8) % Basophils % (Manual) (0.1-1.2) Platelet Estimate RBC Morph Comment Sodium (136-145) mEq/L Potassium (3.5-5.1) mEq/L Chloride (98-107) mEq/L Carbon Dioxide (21-32) mEq/L Anion Gap (5-15) BUN (7-18) mg/dL Creatinine (0.55-1.02) mg/dL Est Cr Clr Drug Dosing mL/min Estimated GFR (MDRD) (>60) mL/min BUN/Creatinine Ratio (14-18) Glucose (74-106) mg/dL Calcium (8.5-10.1) mg/dL Total Bilirubin (0.2-1.0) mg/dL AST (15-37) U/L ALT (14-59) U/L Alkaline Phosphatase (46-116) U/L Total Protein (6.4-8.2) g/dl Albumin (3.4-5.0) g/dl Globulin gm/dL Albumin/Globulin Ratio (1-2) HCG, Quant mIU/mL Urine Color Yellow (Yellow) Urine Appearance Clear (Clear) Urine pH 7.0 (5.0-8.0) Ur Specific [place] 1.025 (1.005-1.030) Urine Protein Negative (Negative) Urine Glucose (UA) Negative (Negative) Urine Ketones Negative (Negative) Urine Occult Blood Trace-lysed H (Negative) Urine Nitrite Negative (Negative) Urine Bilirubin Negative (Negative) Urine Urobilinogen 0.2 (0.2-1.0) Ur Leukocyte Esterase Negative (Negative) Urine RBC 0-5 (0-5) /hpf Urine WBC 0-5 (0-5) /hpf Ur Epithelial Cells 0-5 (0-5) /hpf Urine Bacteria Few (FEW) /hpf Urine Mucus Not seen (FEW) /hpf Blood Type O POSITIVE Gel Antibody Screen Negative Rhogam Indicated No Meds: Medications Discontinued Medications Generic Name Dose Route Start Last Admin Trade Name Freq PRN Reason Stop Dose Admin Diatrizoate Meglum/Diatrizoate Sod 120 ml 02/07/18 11:33 02/07/18 12:36 Gastrografin 37% PO 02/07/18 11:34 90 ml ONETIME ONE Administration Hydromorphone HCl 1 mg 02/07/18 09:53 02/07/18 10:24 Dilaudid IVPUSH 02/07/18 09:54 0.5 mg ONETIME STA Administration Hydromorphone HCl 0.5 mg 02/07/18 12:05 02/07/18 12:07 Dilaudid IVPUSH 05/16/18 12:06 0.5 mg ONETIME ONE Administration Sodium Chloride 1,000 mls @ 150 mls/hr 02/07/18 10:00 02/07/18 10:24 Normal Saline IV 150 mls/hr ASDIRECTED JODY Administration Ibuprofen 600 mg 02/07/18 13:39 02/07/18 13:54 Motrin PO 02/07/18 13:40 600 mg ONETIME ONE Administration Iopamidol 150 ml 02/07/18 11:33 02/07/18 12:36 Isovue-300 (61%) IVPUSH 02/07/18 11:34 125 ml ONETIME ONE Administration Ondansetron HCl 4 mg 02/07/18 09:51 02/07/18 10:28 Zofran IVPUSH 02/07/18 09:52 4 mg ONETIME ONE Administration Ondansetron HCl 4 mg 02/07/18 11:57 02/07/18 12:01 Zofran IVPUSH 02/07/18 11:58 4 mg ONETIME ONE Administration Sodium Chloride 10 ml 02/07/18 11:33 02/07/18 12:36 Saline Flush FLUSH 10 ml ONETIME PRN Administration IV FLUSH - Re-Assessments/Exams Free Text/Narrative Re-Assessment/Exam: 02/07/18 09:54 A urine test was apparently "indeterminate" at a walk-in clinic yesterday. If the patient is , a right ectopic is of concern, however, I am more concerned that the patient might have appendicitis. In addition to a CBC, CMP, and urinalysis, I have ordered a quantitative hCG. If positive, I will order a pelvic ultrasound to evaluate for an ectopic . If negative, I will order a CT scan of the abdomen and pelvis to evaluate for appendicitis. 02/07/18 11:19 The patient's quantitative hCG is 5, the lowest measurable quantity. While an early ectopic is in theory possible, the concern that we have is that an ectopic has progressed to the point of fallopian tube injury and bleeding. At that point, however, we would expect the quantitative hCG to be higher than 5, and therefore a pelvic ultrasound to evaluate for an ectopic is not indicated at this time. It is my judgment that the patient is not . I will pursue a workup for appendicitis with a CT scan of the abdomen and pelvis. 02/07/18 12:55 CT of the abdomen and pelvis with oral and IV contrast is read by Dr. Baxter as: 1. Appendix appears normal in size without inflammatory change. 2. Fatty infiltration is seen within the liver. 3. No additional abnormality is seen on CT study of the abdomen and pelvis. 02/07/18 13:36 Test results discussed with the patient and her . As above, today's workup is entirely negative, and does not explain the cause of patient's pain. The patient could have an ovarian cyst, but the CT scan does not find any evidence for hemorrhage. Her pain could also be from menstruation. In either case, ibuprofen would be recommended. I'm recommending that if her pain persists past few days, that she follow-up with her Diamond Blender, Dr. Weiner. Departure - Departure Time of Disposition: 13:37 Disposition: Home, Self-Care 01 Condition: Good Clinical Impression: Right lower quadrant abdominal pain of unknown etiology - Discharge Information Instructions: Abdominal Pain, Adult, [id number] Referrals: Julissa Peraza PA-C [Primary Care Provider] - Julieta Weiner MD [Physician] - Forms: ED Department Discharge Additional Instructions: You were seen in the emergency room for right lower abdominal cramps, nausea, and vomiting, along with menstrual bleeding. Workup in the ER included blood work, a urinalysis, and a CT scan of your abdomen and pelvis. Your entire workup was unremarkable. You are not . You do not have a urinary tract infection. You do not have appendicitis. The cause of your abdominal pain is not known. It is possible that you have an ovarian cyst, or, it is possible that your pain is related to your menstrual period. We recommend that you take [id number] ibuprofen, 2-3 tablets (400-600 mg) every 8 hours, with food, as needed for discomfort. If your pain persists past 2-3 days, we recommend that you follow-up with your Diamond Blender, Dr. Weiner. If any other problems, please do not hesitate to return to the ER. - My Orders Last 24 Hours: My Active Orders 02/07/18 12:20 UA W/MICROSCOPIC [URIN] Stat - Assessment/Plan Last 24 Hours: My Active Orders 02/07/18 12:20 UA W/MICROSCOPIC [URIN] Stat
[2018-02-07] MEDS ORDERED: Sodium Chloride 0.9% 1,000 ML IV SCH (10:00)
[2018-02-07] MEDS ORDERED: Sodium Chloride 0.9% 10 ML Syringe FLUSH PRN (11:33)
[2018-02-07] MEDS ORDERED: Iopamidol 612 MG/ML 150 ML Bottle IVPUSH ONE (11:33)
[2018-02-07] MEDS ORDERED: Diatrizoate Meglumine/Diatrizoate Sodium 37% 120 ML Bottle PO ONE (11:33)
[2018-02-07] MEDS ORDERED: HYDROmorphone 0.5 MG/0.5 ML SYRINGE IVPUSH ONE (12:05)
--- NOTE | 2018-02-07 12:51 | CT ---
CT abdomen and pelvis Technique: Multiple axial sections were obtained from slightly below the dome of the diaphragm inferiorly through the pubic symphysis. Intravenous and oral contrast has been given. Comparison: Prior renal stone CT exam of 08/24/17 is available. Findings: Appendix is seen which is normal in size. No inflammatory change is seen around the appendix. Visualized lung bases shows nothing acute. Fatty infiltration is seen within the liver. No focal abnormality is appreciated within the liver. Spleen appears within normal limits. Adrenal glands show no nodule. Pancreas is within normal limits. Gallbladder contains no calcified gallstones. Aorta shows no aneurysmal dilatation. No retroperitoneal adenopathy is seen. Kidneys show symmetric contrast enhancement without hydronephrosis or mass. No mesenteric abnormalities are seen. No pelvic mass or adenopathy is noted. No free fluid is seen. Bone window settings were reviewed which appears within normal limits for the patient's age. Impression: 1. Appendix appears normal in size without inflammatory change. 2. Fatty infiltration is seen within the liver. 3. No additional abnormality is seen on CT study of the abdomen and pelvis. Diagnostic code #2
[2018-02-07] MEDS ORDERED: Ibuprofen 600 MG Tab PO ONE (13:39)
== END 2018-02-07 13:55 | disposition home or self-care (01) ==
LOC: JD.ED 08:37
DX: R10.31 Right lower quadrant pain (principal)
CPT/HCPCS: 36415; 74177; 80053; 81001; 84702; 85007; 85027; 86850; 86900; 86901; 96361; 96374; 96375; 96376; 99284; A9270; J1170; J2405; J7040; J7050; Q9963; Q9967

== ENCOUNTER 2018-09-30 14:31 | Emergency (ER) | payer OTHER, BC ==
[2018-09-30 14:52] VITALS: BP 125/87
[2018-09-30] MEDS ORDERED: Albuterol 0.083% 2.5 MG/3 ML Neb Soln NEB ONE (15:25)
[2018-09-30] MEDS ORDERED: Codeine/guaiFENesin 100-10 MG/5 ML Syrup 5 ML Cup PO ONE (15:25)
--- NOTE | 2018-09-30 16:24 | EDM.PDOC ---
ED HPI GENERAL MEDICAL PROBLEM - General Chief Complaint: Respiratory Problem Stated Complaint: COUGH CONGESTION Time Seen by Provider: 09/30/18 14:49 Source of Information: Reports: Patient History Limitations: Reports: No Limitations - History of Present Illness INITIAL COMMENTS - FREE TEXT/NARRATIVE: Patient is a 38-year-old female who is 25 who presents the ED complaining of persistent cough with shortness of breath. Patient was evaluated here in the emergency department September 01 diagnosed with bronchitis. She was placed on azithromycin, albuterol inhaler, and prednisone. Patient states symptoms had almost completely resolved. Patient traveled to [place] over [place] and returned this past Monday with symptoms starting to progressively get worse. Patient was evaluated at the walk-in clinic. She was prescribed Augmentin and steroid inhaler. Symptoms have not resolved. Patient states her breathing rate has increased since she cannot take a deep breath since this will worsen the cough. Cough has been productive at times with green/ yellow phlegm. There has been faint blood present. She has no history of PE or DVT. She was evaluated at the walk-in clinic Monday no influenza screen. States she has a mild sore throat worsened with coughing. Has some chest discomfort anterior worsen with coughing as well described as pressure sensation. Patient states with traveling back from [place] she was out of the vehicle every 2 hours to allow her children to run around and for herself to go to the bathroom. There has been no increased swelling or pain to her lower extremities. Patient's children had similar URI symptoms that resolved. She is being evaluated by Dr. Rice FOOD SERVICES COORDINATOR specialist. Per patient she is high risk with preeclampsia and placenta previa. States yesterday she had temperature 100.1. Pain to the chest does radiate into her back worse with coughing. Pain in the chest is rated a 7 out of 10 pressure/sharp in nature. Vital signs on admission to the ED pressure 125/87, respiratory rate 50 and shallow, oxygen saturation 98% on room air, temperature is 98.4, heart rate 95 Treatments HOSPITAL PERSONNEL DIRECTOR: Reports: Other (see below) Other Treatments HOSPITAL PERSONNEL DIRECTOR: tylenol Throat Pain Score (Numeric/FACES): 7 - Related Data Allergies Allergy/AdvReac Type Severity Reaction Status Date / Time No Known Allergies Allergy Verified 02/07/18 09:03 Home Meds: Home Meds Albuterol [Proventil HFA] 2 puff INH Q4H PRN #1 inhaler 09/01/18 [Rx] Vit #108/Iron/FA [ One Tablet] 1 tab PO DAILY 09/01/18 [History ] Amoxicillin/Potassium Clav [Augmentin 875-125 Tablet] 1 tab PO BID 09/30/18 [ History] Beclomethasone Dipropionate [Qvar] 1 - 2 puff INH BID 09/30/18 [History] Hydrocodone/Chlorphen P-Stirex [Tussionex Pennkinetic Susp] 5 ml PO BID PRN # 100 cira.er.12h 09/30/18 [Rx] predniSONE [Prednisone] 40 mg PO QAM #8 tablet 09/30/18 [Rx] Past Medical History - Past Health History Medical/Surgical History: Denies Medical/Surgical History Other HEENT History: wears eyeglasses/contacts. Respiratory History: Reports: Bronchitis, Recurrent Gastrointestinal History: Reports: PUD, Other (See Below) Other Gastrointestinal History: H-pylori, enlarged liver FOOD SERVICES COORDINATOR History: Reports: , Therapeutic Other FOOD SERVICES COORDINATOR History: has had 4 vaginal deliveries over the years; 09-30-18 currently 24 weeks. Other Psychiatric History: is currently on anti-depressant. 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 ED EXAM, GENERAL - Physical Exam Exam: See Below Exam Limited By: No Limitations General Appearance: Alert, WD/WN, No Apparent Distress Ears: Hearing Grossly Normal Nose: Normal Inspection, Normal Mucosa, No Blood Throat/Mouth: Normal Inspection, Normal Oropharynx, Normal Voice, No Airway Compromise Head: Atraumatic, Normocephalic Neck: Normal Inspection, Supple, Non-Tender, Full Range of Motion Respiratory/Chest: No Respiratory Distress, Lungs Clear, Normal Breath Sounds, No Accessory Muscle Use, Chest Non-Tender, Other (Difficulty with auscultating lungs sounds with patient coughing with taking a deep breath. No obvious adventitious lung sounds present.) Cardiovascular: Normal Peripheral Pulses, Regular Rate, Rhythm, No Murmur Peripheral Pulses: 2+: Radial (L), Radial (R) Neurological: Alert, Oriented, CN II-XII Intact, Normal Cognition, No Motor/ Sensory Deficits Psychiatric: Normal Affect, Normal Mood Skin Exam: Warm, Dry, Intact, Normal Color, No Rash Course - Vital Signs Last Recorded V/S: Last Vital Signs Temp 98.4 F 09/30/18 14:49 Pulse 91 09/30/18 14:49 Resp 20 09/30/18 14:49 BP 125/87 09/30/18 14:49 Pulse Ox 98 09/30/18 15:42 - Orders/Labs/Meds Orders: Active Orders 24 hr Category Date Time Status EKG 12 Lead [EKG Documentation Completion] [RC] STAT Care 09/30/18 16:24 Active RT Aerosol Therapy [RC] ASDIRECTED Care 09/30/18 15:28 Active CXR [Chest 2V] [CR] Stat Exams 09/30/18 15:29 Taken SANDI LI NUCLEIC ACID AMP [MREF] Stat Lab 09/30/18 16:55 Received CULTURE BLOOD [BC] Stat Lab 09/30/18 15:45 Received CULTURE BLOOD [BC] Stat Lab 09/30/18 15:50 Received STREP PNEUMONIAE ANTIGEN [MREF] Stat Lab 09/30/18 15:52 Received Blood Culture x2 Reflex Set [OM.PC] Stat Oth 09/30/18 15:25 Ordered Labs: Laboratory Tests 09/30/18 09/30/18 09/30/18 Range/Units 15:45 15:45 15:45 WBC 11.62 H (3.98-10.04) K/mm3 RBC 3.68 L (3.98-5.22) M/mm3 Hgb 11.2 (11.2-15.7) gm/L Hct 32.9 L (34.1-44.9) % MCV 89.4 (79.4-94.8) fl MCH 30.4 (25.6-32.2) pg MCHC 34.0 (32.2-35.5) g/dl RDW Std Deviation 42.7 (36.4-46.3) fL Plt Count 338 (182-369) K/mm3 MPV 9.9 (9.4-12.3) fl Neutrophils % (Manual) 77 H (40-60) % Band Neutrophils % 0 (0-10) % Lymphocytes % (Manual) 17 L (20-40) % Atypical Lymphs % 0 % Monocytes % (Manual) 3 (2-10) % Eosinophils % (Manual) 1 (0.7-5.8) % Basophils % (Manual) 2 H (0.1-1.2) Platelet Estimate Adequate RBC Morph Comment Normal Sodium 138 (136-145) mEq/L Potassium 3.8 (3.5-5.1) mEq/L Chloride 106 (98-107) mEq/L Carbon Dioxide 20 L (21-32) mEq/L Anion Gap 15.8 H (5-15) BUN 6 L (7-18) mg/dL Creatinine 0.6 (0.55-1.02) mg/dL Est Cr Clr Drug Dosing 120.18 mL/min Estimated GFR (MDRD) > 60 (>60) mL/min BUN/Creatinine Ratio 10.0 L (14-18) Glucose 82 (74-106) mg/dL Lactic Acid 0.8 (0.4-2.0) mmol/L Calcium 8.6 (8.5-10.1) mg/dL Total Bilirubin 0.2 (0.2-1.0) mg/dL AST 7 L (15-37) U/L ALT 20 (14-59) U/L Alkaline Phosphatase 110 (46-116) U/L C-Reactive Protein 0.6 (<1.0) mg/dL Total Protein 7.1 (6.4-8.2) g/dl Albumin 2.7 L (3.4-5.0) g/dl Globulin 4.4 gm/dL Albumin/Globulin Ratio 0.6 L (1-2) HCG, Quant mIU/mL Mycoplasma pneumon IgM Negative (NEGATIVE) 09/30/18 Range/Units 15:45 WBC (3.98-10.04) K/mm3 RBC (3.98-5.22) M/mm3 Hgb (11.2-15.7) gm/L Hct (34.1-44.9) % MCV (79.4-94.8) fl MCH (25.6-32.2) pg MCHC (32.2-35.5) g/dl RDW Std Deviation (36.4-46.3) fL Plt Count (182-369) K/mm3 MPV (9.4-12.3) fl Neutrophils % (Manual) (40-60) % Band Neutrophils % (0-10) % Lymphocytes % (Manual) (20-40) % Atypical Lymphs % % Monocytes % (Manual) (2-10) % Eosinophils % (Manual) (0.7-5.8) % Basophils % (Manual) (0.1-1.2) Platelet Estimate RBC Morph Comment Sodium (136-145) mEq/L Potassium (3.5-5.1) mEq/L Chloride (98-107) mEq/L Carbon Dioxide (21-32) mEq/L Anion Gap (5-15) BUN (7-18) mg/dL Creatinine (0.55-1.02) mg/dL Est Cr Clr Drug Dosing mL/min Estimated GFR (MDRD) (>60) mL/min BUN/Creatinine Ratio (14-18) Glucose (74-106) mg/dL Lactic Acid (0.4-2.0) mmol/L Calcium (8.5-10.1) mg/dL Total Bilirubin (0.2-1.0) mg/dL AST (15-37) U/L ALT (14-59) U/L Alkaline Phosphatase (46-116) U/L C-Reactive Protein (<1.0) mg/dL Total Protein (6.4-8.2) g/dl Albumin (3.4-5.0) g/dl Globulin gm/dL Albumin/Globulin Ratio (1-2) HCG, Quant 42872.0 mIU/mL Mycoplasma pneumon IgM (NEGATIVE) Meds: Medications Discontinued Medications Generic Name Dose Route Start Last Admin Trade Name Freq PRN Reason Stop Dose Admin Hydrocodone Bitart/Acetaminophen 15 ml 09/30/18 16:55 09/30/18 17:15 Acetaminophen/Hydrocodone 108-2.5 Mg/5 Ml PO 09/30/18 16:56 15 ml ONETIME ONE Administration Albuterol 2.5 mg 09/30/18 15:25 09/30/18 15:41 Proventil Neb Soln NEB 09/30/18 15:26 2.5 mg ONETIME ONE Administration Guaifenesin/Codeine Phosphate 5 ml 09/30/18 15:25 09/30/18 15:50 Robitussin Ac PO 09/30/18 15:26 5 ml ONETIME ONE Administration Prednisone 40 mg 09/30/18 17:58 09/30/18 18:22 Prednisone PO 09/30/18 17:59 40 mg ONETIME ONE Administration - Re-Assessments/Exams Free Text/Narrative Re-Assessment/Exam: Vital signs on admission to the ED pressure 125/87, respiratory rate 50 and shallow, oxygen saturation 98% on room air, temperature is 98.4, heart rate 95. Ordered albuterol neb treatment 2.5 mg 1 and codeine with these next 5 mils by mouth 1 time. Initial labs and studies will include: CBC, chem 14, CRP, influenza screen, hCG quantitative, blood cultures 2, lactic acid, mycoplasma pneumonia, pneumonia, and Bordetella pertussis. Suspect this is viral in etiology. Patient has been on azithromycin with incomplete resolution along with Augmentin as of this past Monday with incomplete resolution. Of course there is concern she may have a PE. Heart rate and SPO2 are within normal limits and she has no history of PE or DVT. I have not ordered a d-dimer since this will most likely be elevated as well due to being . On examination patient does not have any findings concerning for DVT. I have discussed the patient with Dr. Angelo and great detail. He agrees with plan and course at this time. Chest x-ray two-view has been ordered. Patient is 24 weeks . Per milieu technician they are not able to adequately cover the fetus thus exposing the fetus to radiation. We will wait for labs. 1610 reassessment, per Elisa LEMONS patients symptoms have not improved. Will wait 1/2 hr to reassess and see if treatment is working. Labs reviewed: White cell count 11.62, hemoglobin 11.2, platelet count 338, neutrophil percentage 77, lymphocytes percentage 17, no left shift, sodium and potassium are normal. AG is slightly elevated. CO2 20. Creatinine 0.6. Glucose 82. Lactic acid 0.8. CRP 0.6. HCG quantitative 12,470. Mycoplasma and influenza screens are negative. 09/30/18 16:57 Reassessment, patient states the cough has not drastically improved. No relief with taking the above therapies. We have discussed lab results with the patient. We have elected to obtain chest x-ray. Patient was advised the fetus will be exposed to potentially small amount of radiation although they will attempt to adequately cover. In addition patients breast will be exposed to radiation as well. She has agreed to proceed with x-ray of the chest. In addition who is present states patient has been complaining of some intermittent pain to the right calf. On reexamination there is no pain or swelling noted. Due to recent history of long travel with shortness of breath and coughing I have elected to obtain VL duplex of the right leg. Will not obtain a d-dimer at this point since the patient is and will be elevated. Do not suspect this is a PE at this time. HR and SP02 normal. CXR reviewed with Dr. Angelo with no focal consolidation concerning for pneumonia. Final interpretation is pending. EKG reviewed with Dr. Angelo. No S1, Q3, T3. No acute ST changes noted. Reassessment, patient states symptoms have drastically improved with the hydrocodone cough syrup. Prednisone was administered. Ultrasound of the right leg impression: No evidence of deep thrombosis within the right lower extremity or within the left common femoral vein. 1928 Reassessment, patient's vital signs are stable. Cough has drastically improved. She is not short of breath. Suspect cause of recent complaint is viral in nature. We'll discharge patient home on a short course of prednisone 40 mg every day for the next 4 days. Giving the patient a total of 5 days of treatment. Tussionex cough syrup provided. Patient will be instructed to follow- up with PCP this coming week for reevaluation. Keep appointment with FOOD SERVICES COORDINATOR specialist as scheduled. Return to the ED if she develops any new or worsening symptoms. The patient remained hemodynamically stable while under my care in the E.D. I discussed the concerning symptoms for which to return to the E.D. with the patient/family. The patient/family verbalized understanding. All questions were answered. Departure - Departure Time of Disposition: 19:29 Disposition: Home, Self-Care 01 Condition: Good Clinical Impression: Bronchitis - Discharge Information Prescriptions: Hydrocodone/Chlorphen P-Stirex [Tussionex Pennkinetic Susp] 5 ml PO BID PRN # 100 cira.er.12h PRN Reason: Cough predniSONE [Prednisone] 40 mg PO QAM #8 tablet Instructions: Acute Bronchitis, Adult, [id number] Referrals: Julissa Peraza PA-C [Primary Care Provider] - Forms: ED Department Discharge Additional Instructions: Continue taking the inhalers as prescribed. Will start you on a short course of prednisone 40 mg every day for the next 4 days. Take Tussionex cough syrup 5 mls twice a day as needed for cough. Push the fluids. Follow-up with PCP this coming week for reevaluation. Return to the ED if you develop any new or worsening symptoms. Additional labs have been obtained if positive you will be notified. Suspect this is viral in etiology but due to the duration of the cough will have you continue taking the augmentin as prescribed. - My Orders Last 24 Hours: My Active Orders 09/30/18 15:25 Blood Culture x2 Reflex Set [OM.PC] Stat 09/30/18 15:28 RT Aerosol Therapy [RC] ASDIRECTED 09/30/18 15:29 CXR [Chest 2V] [CR] Stat 09/30/18 15:45 CULTURE BLOOD [BC] Stat 09/30/18 15:50 CULTURE BLOOD [BC] Stat 09/30/18 15:52 STREP PNEUMONIAE ANTIGEN [MREF] Stat 09/30/18 16:24 EKG 12 Lead [EKG Documentation Completion] [RC] STAT 09/30/18 16:55 BORD PERTUSS NUCLEIC ACID AMP [MREF] Stat - Assessment/Plan Last 24 Hours: My Active Orders 09/30/18 15:25 Blood Culture x2 Reflex Set [OM.PC] Stat 09/30/18 15:28 RT Aerosol Therapy [RC] ASDIRECTED 09/30/18 15:29 CXR [Chest 2V] [CR] Stat 09/30/18 15:45 CULTURE BLOOD [BC] Stat 09/30/18 15:50 CULTURE BLOOD [BC] Stat 09/30/18 15:52 STREP PNEUMONIAE ANTIGEN [MREF] Stat 09/30/18 16:24 EKG 12 Lead [EKG Documentation Completion] [RC] STAT 09/30/18 16:55 BORD PERTUSS NUCLEIC ACID AMP [MREF] Stat
[2018-09-30] MEDS ORDERED: Acetaminophen/HYDROcodone 108-2.5 MG/5 ML Soln 15 ML UD Cup PO ONE (16:55)
[2018-09-30] MEDS ORDERED: predniSONE 20 MG Tab PO ONE (17:58)
--- NOTE | 2018-09-30 18:56 | US ---
Right lower extremity deep venous ultrasound: Duplex and color flow imaging was obtained of the right common femoral, proximal greater saphenous, superficial femoral, popliteal, posterior tibial and peroneal veins. Left common femoral vein was also evaluated. Comparison: No prior venous exam. Veins show normal phasic flow, augmentation and compression. Impression: 1. No evidence of deep venous thrombosis within the right lower extremity or within the left common femoral vein. Diagnostic code #1
--- NOTE | 2018-10-01 06:38 | CR ---
Chest: Two views of the chest were obtained. Comparison: Prior chest x-ray 09/01/18. Heart size and mediastinum are normal. Lungs are clear. Bony structures appear within normal limits. Impression: 1. Nothing acute is appreciated on two-view chest x-ray. Diagnostic code #1
== END 2018-09-30 20:08 | disposition home or self-care (01) ==
LOC: JD.ED 14:31 → SUPCPDRO 14:31 → JD.ED 20:08
DX: J40 Bronchitis, not specified as acute or chronic (principal); Z79.899 Other long term (current) drug therapy
CPT/HCPCS: 36415; 71046; 80053; 83605; 84702; 85007; 85027; 86140; 86738; 87040; 87798; 87804; 87899; 93005; 93971; 94640; 99284; A9270; 93010; 99283

== ENCOUNTER 2018-10-12 17:24 | Emergency (ER) | payer OTHER, BC ==
[2018-10-12 17:46] VITALS: BP 123/79
--- NOTE | 2018-10-12 18:15 | EDM.PDOC ---
ED HPI GENERAL MEDICAL PROBLEM - General Chief Complaint: Respiratory Problem Stated Complaint: RESPIRATORY ISSUES Time Seen by Provider: 10/12/18 17:56 Source of Information: Reports: Patient History Limitations: Reports: No Limitations - History of Present Illness INITIAL COMMENTS - FREE TEXT/NARRATIVE: The patient presents with a cough. She says this has been going on for about 2 months. She has been seen here twice. She had bronchitis, pneumonia, and pertussis. She has been treated for all of those and still has a cough. She has no shortness of breath. She does have a history of asthma according to her but she says she is not wheezing. She is 26 weeks gestation[address] She saw Dr Rice today and he would not prescribe any tussinex. The options he recommended did not work for her. She was referred here for re-evaluation. Onset: Gradual Duration: Week(s): (8) Severity: Moderate Improves with: Reports: None Worsens with: Reports: None Associated Symptoms: Reports: Cough. Denies: Chest Pain, Fever/Chills, Headaches, Nausea/Vomiting, Shortness of Breath - Related Data Allergies Allergy/AdvReac Type Severity Reaction Status Date / Time No Known Allergies Allergy Verified 02/07/18 09:03 Home Meds: Home Meds Albuterol [Proventil HFA] 2 puff INH Q4H PRN #1 inhaler 09/01/18 [Rx] Vit #108/Iron/FA [ One Tablet] 1 tab PO DAILY 09/01/18 [History ] Beclomethasone Dipropionate [Qvar] 1 - 2 puff INH BID 09/30/18 [History] Hydrocodone/Chlorphen P-Stirex [Tussionex Pennkinetic Susp] 5 ml PO BID PRN # 100 cira.er.12h 09/30/18 [Rx] Hydrocodone/Chlorphen P-Stirex [Tussionex Pennkinetic Susp] 5 ml PO Q12HR PRN # 100 cira.er.12h 10/12/18 [Rx] Past Medical History - Past Health History Medical/Surgical History: Denies Medical/Surgical History Other HEENT History: wears eyeglasses/contacts. Respiratory History: Reports: Bronchitis, Recurrent Gastrointestinal History: Reports: PUD, Other (See Below) Other Gastrointestinal History: H-pylori, enlarged liver THEATRICAL VARIETY AGENT History: Reports: , Therapeutic Other THEATRICAL VARIETY AGENT History: has had 4 vaginal deliveries over the years; 1-6-19 currently 26 weeks. Other Psychiatric History: is currently on anti-depressant. 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 Denies: Shortness of Breath Cardiovascular: Reports: No Symptoms Endocrine: Reports: No Symptoms GI/Abdominal: Reports: No Symptoms : Reports: No Symptoms Musculoskeletal: Reports: No Symptoms ED EXAM, GENERAL - Physical Exam Exam: See Below Exam Limited By: No Limitations General Appearance: Alert, No Apparent Distress Ears: Normal External Exam Nose: Normal Inspection Head: Atraumatic, Normocephalic Neck: Normal Inspection Respiratory/Chest: No Respiratory Distress, Lungs Clear, Normal Breath Sounds Cardiovascular: Regular Rate, Rhythm, No Edema, No Murmur GI/Abdominal: Soft, Non-Tender, No Organomegaly, No Mass Back Exam: Normal Inspection Extremities: Normal Inspection Neurological: Alert, Oriented, No Motor/Sensory Deficits Course - Vital Signs Last Recorded V/S: Last Vital Signs Temp 97.5 F 10/12/18 17:45 Pulse 67 10/12/18 17:45 Resp 20 10/12/18 17:45 BP 123/79 10/12/18 17:45 Pulse Ox 100 10/12/18 17:45 Departure - Departure Time of Disposition: 18:15 Disposition: Home, Self-Care 01 Condition: Good Clinical Impression: Cough - Discharge Information *PRESCRIPTION DRUG MONITORING PROGRAM REVIEWED*: No *COPY OF PRESCRIPTION DRUG MONITORING REPORT IN PATIENT LEORA: No Prescriptions: Hydrocodone/Chlorphen P-Stirex [Tussionex Pennkinetic Susp] 5 ml PO Q12HR PRN # 100 cira.er.12h PRN Reason: Cough Referrals: Julissa Peraza PA-C [Primary Care Provider] - Additional Instructions: Take the tussinex 5mls every 12 hours as needed for cough. Please return if you are worse.
== END 2018-10-12 18:30 | disposition home or self-care (01) ==
LOC: JD.ED 17:24
DX: R05 Cough (principal); Z79.899 Other long term (current) drug therapy
CPT/HCPCS: 99284